=== PATIENT | male | born 1995 | race Two or more races ===

== ENCOUNTER 2024-05-28 19:11 | Emergency (ER) | payer OTHER ==
[~2024-05-28] VITALS: Ht 172.7 cm; Wt 78.0 kg
[2024-05-28 21:05] VITALS: BP 145/98; TEMP 98.7; O2SAT 96
[2024-05-28 21:33] LABS: BASOPHILS % (AUTO) 0.3 % (0.0-2.0); HEMATOCRIT 50 % (39-51); HEMOGLOBIN 17.1 g/dL (13.5-17.5); LYMPHOCYTES # (AUTO) 0.9 K/uL (0.8-4.8); LYMPHOCYTES % (AUTO) 5.3 % (20.0-44.0); MEAN CORPUSCULAR HEMOGLOBIN 29 PG (26.0-33.0); MEAN CORPUSCULAR HGB CONC 34 g/dl (31.0-36.0); MEAN CORPUSCULAR VOLUME 84 fL (80-96); MONOCYTES # (AUTO) 0.5 K/uL (0.1-1.30); MONOCYTES % (AUTO) 2.9 % (2.0-12.0); NEUTROPHILS # (AUTO) 15.7 K/uL (1.8-8.9); NEUTROPHILS % (AUTO) 91.5 % (43.0-81.0); PLATELET COUNT (AUTO) 212 K/uL (150-450); RED BLOOD CELL COUNT(AUTO) 5.98 MIL/uL (4.5-6.0); RED CELL DISTRIBUTION WIDTH 13.1 % (11.5-15.0); WHITE BLOOD COUNT (AUTO) 17.2 K/uL (4.3-11.0)
[2024-05-28] MEDS ORDERED: MAG HYDROX/AL HYDROX/SIMETH 30 ML UDC ONE (21:38)
[2024-05-28] MEDS ORDERED: FAMOTIDINE/PF INJ 20 MG/2 ML VIAL IV ONE (21:38)
[2024-05-28] MEDS ORDERED: LIDOCAINE VISCOUS 2% UD 15 ML UDC ONE (21:38)
[2024-05-28] MEDS: FAMOTIDINE/PF INJ 20 MG/2 ML VIAL IV ONE (21:43)
[2024-05-28] MEDS: LIDOCAINE VISCOUS 2% UD 15 ML UDC MM ONE (21:43)
[2024-05-28] MEDS: IV NS 0.9% 1,000 ML BAG IV ONE ×2 (21:43→23:44)
[2024-05-28] MEDS: MAG HYDROX/AL HYDROX/SIMETH 30 ML UDC PO ONE (21:43)
[2024-05-28 21:52] LABS: ALANINE AMINOTRANSFERASE 64 U/L (12-78); ALKALINE PHOSPHATASE 70 U/L (46-116); ASPARTATE AMINOTRANSFERASE 6 U/L (15-37); BILIRUBIN,DIRECT 0.2 mg/dL (0.0-0.2); BILIRUBIN,TOTAL 1.1 mg/dL (0.2-1.0); CALCIUM, SERUM 8.9 mg/dL (8.5-10.1); CARBON DIOXIDE 26 mmol/L (21-32); CHLORIDE 100 mmol/L (98-107); CREATININE 1.2 mg/dL (0.6-1.3); GLUCOSE 113 mg/dL (74-106); POTASSIUM 4.1 mmol/L (3.5-5.1); SODIUM SERUM 139 mmol/L (136-145); TOTAL PROTEIN, SERUM 7.4 g/dL (6.4-8.2); UREA NITROGEN, BLOOD 8 mg/dL (7-18)
[2024-05-28 21:56] LABS: LIPASE > 375 U/L (16-77)
[2024-05-28] MEDS ORDERED: ONDANSETRON HCL/PF 4 MG/2 ML VIAL ONE (22:58)
[2024-05-28] MEDS ORDERED: MORPHINE SULFATE INJ 4 MG/ML DISP.SYRIN ONE (22:58)
[2024-05-28] MEDS: MORPHINE SULFATE INJ 2 MG/ML DISP.SYRIN IV ONE (22:59)
[2024-05-28] MEDS: ONDANSETRON HCL/PF 4 MG/2 ML VIAL IVP ONE (22:59)
[2024-05-29 01:25] LABS: ALCOHOL, BLOOD < 3 mg/dL (0-10)
[2024-05-29 01:28] LABS: TRIGLYCERIDES 298 mg/dL (30-150)
[2024-05-29 01:31] LABS: LACTIC ACID 1.6 mmol/L (0.4-2.0)
== END 2024-05-29 03:41 | disposition short-term general hospital (02) ==
LOC: ER 19:20
DX: K85.90 Acute pancreatitis without necrosis or infection, unspecified (principal); R11.2 Nausea with vomiting, unspecified; Z87.19 Personal history of other diseases of the digestive system
CPT/HCPCS: 99285; 96374; 96361; 96375; 93005; 71045; 85025; 80048; 83690; 80076; 36415 ×2; 84484; 83605; 84478; 80320; J2270; J3490; J2405; J7030; G0480